=== PATIENT | male | born 1950 | race Caucasian/White ===

== ENCOUNTER 2017-07-14 22:02 | Observation (INO) ==
[2017-07-14 22:29] LABS: Basophils # 0.1 10*3/uL (0.0-0.2); Basophils % 0.8 % (0.0-0.8); Eosinophils # 0.3 10*3/uL (0.0-0.87); Eosinophils % 3.1 % (0.00-10.9); Hematocrit 38.5 VOL% (42.0-52.0); Hemoglobin 12.4 GM/DL (14.0-18.0); Immature Granulocytes % 0.4 %; Immature Granulocytes Absolute 0.03 #; Lymphocytes # 3.2 10*3/uL (1.4-4.0); Mean Corpuscular HGB Conc 32.2 GM/DL (32-36); Mean Corpuscular Hemoglobin 27 PG (27-34); Mean Corpuscular Volume 84.4 FL (87-102); Mean Platelet Volume 9.7 FL (9.6-12.0); Monocytes # 0.6 10*3/uL (0.11-0.8); Monocytes % 7.7 % (1.7-12.7); Neutrophils # 3.8 10*3/uL (1.4-7.4); Platelet Count 323 T/CUMM (130-400); Red Blood Count 4.56 MC/CUMM (3.8-5.5); Red Cell Distribution Width 13.8 % (9.3-17.3)
[2017-07-14 22:37] LABS: INR 0.9; Partial Thromboplastin Time 24.3 SECS (0-40)
[2017-07-14 22:46] LABS: Alanine Aminotransferase 52 U/L (16-61); Albumin 3.7 G/DL (3.4-5.0); Alkaline Phosphatase 77 U/L (45-117); Aspartate Amino Transferase 28 U/L (0-37); Bilirubin,Total < 0.39 MG/DL (0.2-1.0); Blood Urea Nitrogen 25 MG/DL (7-18); Calcium 8.3 MG/DL (8.5-10.1); Glucose 106 MG/DL (74-106); Osmolality,Calculated 278.7 MOS/KG (273-304); Potassium 4.5 MMOL/L (3.5-5.1); Sodium 138 MMOL/L (136-145); Total Protein 6.9 G/DL (6.4-8.3); Troponin I Only < 0.015 NG/ML (0.00-0.045)
[2017-07-14] MEDS ORDERED: ENOXAPARIN 100 MG/ML SYRINGE SUBCUT STA (23:55)
[2017-07-14] MEDS ORDERED: METOPROLOL TARTRATE 25 MG TABLET PO STA (23:55)
[2017-07-15] MEDS ORDERED: ONDANSETRON 4 MG/2 ML VIAL IV PRN (00:50)
[2017-07-15] MEDS ORDERED: MAGNESIUM SULF RIDER 2 GM in PREMIX 1 EACH IV PRN (00:50)
[2017-07-15] MEDS ORDERED: MAGNESIUM SULF RIDER 4 GM in PREMIX 1 EACH IV PRN (00:50)
[2017-07-15] MEDS ORDERED: ACETAMINOPHEN 325 MG TABLET PO PRN (00:50)
[2017-07-15] MEDS ORDERED: POTASSIUM CHLORIDE 20 MEQ TABLET PO PRN (00:50)
[2017-07-15] MEDS: SODIUM CHLORIDE 0.9% 1,000 ML IV SCH ×2 (01:14→09:19)
[2017-07-15 03:10] LABS: Troponin I Only < 0.015 NG/ML (0.00-0.045)
[2017-07-15 08:36] LABS: Troponin I Only < 0.015 NG/ML (0.00-0.045)
[2017-07-15] MEDS ORDERED: traMADol 50 MG TABLET PO PRN (10:41)
[2017-07-15] MEDS ORDERED: GEMFIBROZIL 600 MG TABLET PO SCH (11:00)
[2017-07-15] MEDS ORDERED: ALLOPURINOL 300 MG TABLET PO SCH (11:00)
[2017-07-15] MEDS ORDERED: NEBIVOLOL 10 MG TABLET PO SCH (11:00)
[2017-07-15] MEDS ORDERED: IRBESARTAN 150 MG TABLET PO SCH (11:00)
[2017-07-15] MEDS ORDERED: CLOPIDOGREL 75 MG TABLET PO SCH (11:00)
[2017-07-15] MEDS ORDERED: ISOSORBIDE MONONITRATE 30 MG TABLET PO SCH (11:00)
[2017-07-15] MEDS ORDERED: ASPIRIN 325 MG TABLET PO SCH (11:00)
[2017-07-15] MEDS ORDERED: DIAZEPAM 5 MG TABLET PO ONE (14:18)
[2017-07-15] MEDS ORDERED: diphenhydrAMINE CAP 25 MG CAPSULE PO ONE (14:18)
[2017-07-15] MEDS ORDERED: DIAZEPAM 5 MG TABLET ONE (14:19)
[2017-07-15] MEDS ORDERED: diphenhydrAMINE CAP 25 MG CAPSULE ONE (14:19)
[2017-07-15] MEDS ORDERED: NITROGLYCERIN DRIP 50 MG/250 ML BOTTLE IV ONE (14:41)
[2017-07-15] MEDS ORDERED: HEPARIN/NACL 0.9% 2 UNITS/ML 1,000 ML IV ONE (14:41)
[2017-07-15] MEDS ORDERED: VERAPAMIL 5 MG/2 ML VIAL ONE (14:42)
[2017-07-15] MEDS ORDERED: diphenhydrAMINE CAP 25 MG CAPSULE PO PRN (14:57)
[2017-07-15] MEDS ORDERED: MAGNESIUM HYDROXIDE SUSP 30 ML UDCUP PO PRN (14:57)
[2017-07-15] MEDS ORDERED: MIDAZOLAM 2 MG/2 ML VIAL ONE ×2 (15:21→15:34)
[2017-07-15] MEDS ORDERED: fentaNYL 100 MCG/2 ML VIAL ONE (15:22)
[2017-07-15] MEDS ORDERED: ENOXAPARIN 60 MG/0.6 ML SYRINGE ONE (15:32)
[2017-07-15 17:50] VITALS: BP 121/67
[2017-07-15] MEDS ORDERED: NIFEdipine CC 60 MG TABLET PO SCH (21:00)
[2017-07-15] MEDS ORDERED: clonazePAM 0.5 MG TABLET PO SCH (21:00)
[2017-07-15] MEDS ORDERED: ATORVASTATIN 20 MG TABLET PO SCH (21:00)
[2017-07-16] MEDS ORDERED: PANTOPRAZOLE 20 MG TABLET PO SCH (09:00)
== END 2017-07-15 19:25 | disposition home or self-care (01) ==
LOC: EDUNIT# → EDBD → N.EDINP 22:02 → N.ED 22:02 → N.EDINP 07-15 00:45 → N.ICU 07-15 00:54
PROVIDERS: ADMIT Internal Medicine Cardiovascular Disease; ATTEND Internal Medicine Cardiovascular Disease
PROC: CLCCHCL (ICD-10-PCS; 2017-07-15 13:45)

== ENCOUNTER 2018-10-27 05:52 | Inpatient (IN) ==
[~2018-10-27 05:52] MED LIST: FAMOTIDINE 20 MG TABLET PO ONE; GABAPENTIN 400 MG CAPSULE PO ONE
[2018-10-27] MEDS ORDERED: SODIUM PHOSPHATE ENEMA 133 ML BOTTLE RECTAL ONE ×2 (05:54→06:25)
[2018-10-27] MEDS ORDERED: ALVIMOPAN 12 MG CAPSULE ONE (05:54)
[2018-10-27] MEDS ORDERED: ALVIMOPAN 12 MG CAPSULE PO ONE (06:00)
[2018-10-27] MEDS ORDERED: ACETAMINOPHEN 500 MG TABLET PO ONE (06:00)
[2018-10-27] MEDS ORDERED: cefTRIAXone 1,000 MG in SYRINGE 1 EACH IV ONE (06:00)
[2018-10-27] MEDS ORDERED: GABAPENTIN 400 MG CAPSULE ONE (06:09)
[2018-10-27] MEDS ORDERED: ACETAMINOPHEN 500 MG TABLET ONE (06:09)
[2018-10-27] MEDS ORDERED: cefTRIAXone 1,000 MG VIAL ONE (06:09)
[2018-10-27] MEDS ORDERED: FAMOTIDINE 20 MG TABLET ONE (06:29)
[2018-10-27] MEDS ORDERED: LACTATED RINGERS 1,000 ML IV SCH (07:00)
[2018-10-27] MEDS ORDERED: ONDANSETRON 4 MG/2 ML VIAL IV PRN ×2 (11:00→11:34)
[2018-10-27] MEDS ORDERED: HYDROmorphone PCA 30 MG/30 ML SYRINGE IV SCH ×2 (11:00→12:30)
[2018-10-27] MEDS ORDERED: PROPOFOL 200 MG/20 ML VIAL IV ONE (11:20)
[2018-10-27] MEDS ORDERED: GLYCOPYRROLATE 0.4 MG/2 ML VIAL ONE (11:21)
[2018-10-27] MEDS ORDERED: ePHEDrine 50 MG/ML AMP ONE (11:21)
[2018-10-27] MEDS ORDERED: DESFLURANE 1 UNIT/15 MINUTE INH ONE (11:21)
[2018-10-27] MEDS ORDERED: MIDAZOLAM 2 MG/2 ML VIAL ONE (11:21)
[2018-10-27] MEDS ORDERED: ACETAMINOPHEN 1,000 MG/100 ML VIAL IV ONE (11:21)
[2018-10-27] MEDS ORDERED: ONDANSETRON 4 MG/2 ML VIAL ONE ×2 (11:21→11:34)
[2018-10-27] MEDS ORDERED: ROCURONIUM 100 MG/10 ML VIAL IV ONE (11:22)
[2018-10-27] MEDS ORDERED: PHENYLEPHRINE 1 MG/10 ML SYRINGE IV ONE (11:22)
[2018-10-27] MEDS ORDERED: ALBUTEROL INHALER 8 GM INH ONE (11:22)
[2018-10-27] MEDS ORDERED: NEOSTIGMINE 10 MG/10 ML VIAL ONE (11:22)
[2018-10-27] MEDS ORDERED: LACTATED RINGERS 2,000 ML IV ONE (11:22)
[2018-10-27 11:27] LABS: Amorphous Crystals,Urine Occasional /HPF (Few); Apearance,Urine CLEAR (Clear); Bacteria,Urine Occasional /HPF (Few); Bilirubin,Urine Negative (Negative); Blood, Urine Moderate mg/dL (Negative); Glucose,Urine (UA) Negative (Negative); Hyaline Casts,Urine 5 /LPF (0-3); Ketones,Urine Negative (Negative); Mucus,Urine Occasional /LPF (Occasional); Nitrite,Urine Negative (Negative); Protein,Urine 30 MG/DL; RBC,Urine 19 /HPF (0-4); Squamous Epithelial Cell,Urine Occasional /HPF (0-10); Urine Color Yellow (Yellow); Urine Specific Gravity 1.017 (1.001-1.035); Urine Urobilinogen < 2.0 EU/DL (0.2-1.0); WBC,Urine 3 /HPF (0-6)
[2018-10-27] MEDS ORDERED: HYDROmorphone 2 MG/1 ML VIAL ONE (11:33)
[2018-10-27] MEDS ORDERED: HYDROmorphone 2 MG/1 ML VIAL IV PRN (11:34)
[2018-10-27] MEDS ORDERED: NALOXONE 0.4 MG/ML VIAL IV PRN (12:02)
[2018-10-27 14:32] LABS: Basophils # 0.1 10*3/uL (0.0-0.2); Basophils % 0.4 % (0.0-0.8); Eosinophils % 0.1 % (0.00-10.9); Hematocrit 38.1 VOL% (42.0-52.0); Hemoglobin 12.3 GM/DL (14.0-18.0); Immature Granulocytes % 0.6 %; Immature Granulocytes Absolute 0.08 #; Lymphocytes # 0.9 10*3/uL (1.4-4.0); Lymphocytes % 6.7 % (21.2-54.2); Mean Corpuscular HGB Conc 32.3 GM/DL (32-36); Mean Corpuscular Volume 87.8 FL (87-102); Mean Platelet Volume 10.2 FL (9.6-12.0); Monocytes % 3.6 % (1.7-12.7); Neutrophils % 88.6 % (38.7-73.9); Platelet Count 240 T/CUMM (130-400); Red Blood Count 4.34 MC/CUMM (3.8-5.5); Red Cell Distribution Width 13.2 % (9.3-17.3); White Blood Count 13.3 T/CUMM (4-12)
[2018-10-27] MEDS: SODIUM CHLORIDE 0.9% 1,000 ML IV SCH ×2 (14:51→22:53)
[2018-10-27] MEDS: OXYBUTYNIN XL 10 MG TABLET PO SCH (14:56)
[2018-10-27 14:58] LABS: Albumin 3.3 G/DL (3.4-5.0); Bilirubin,Total 0.6 MG/DL (0.2-1.0); Calcium 8.2 MG/DL (8.5-10.1); Osmolality,Calculated 283.4 MOS/KG (273-304); Total Protein 6.3 G/DL (6.4-8.3)
[2018-10-27] MEDS ORDERED: MEPERIDINE 50 MG/1 ML VIAL IM PRN ×2 (16:18→17:31)
[2018-10-27] MEDS ORDERED: PANTOPRAZOLE 40 MG TABLET PO ONE (17:44)
[2018-10-27] MEDS ORDERED: NON-FORMULARY MEDICATION (Nifedipine 60 MG) PO SCH (21:00)
[2018-10-27] MEDS: ATORVASTATIN 20 MG TABLET PO SCH (21:45)
[2018-10-27] MEDS: ALVIMOPAN 12 MG CAPSULE PO SCH (21:45)
[2018-10-27] MEDS: clonazePAM 0.5 MG TABLET PO SCH (21:45)
[2018-10-28 05:34] LABS: Basophils % 0.3 % (0.0-0.8); Eosinophils % 0.2 % (0.00-10.9); Hematocrit 34.4 VOL% (42.0-52.0); Immature Granulocytes % 0.3 %; Immature Granulocytes Absolute 0.03 #; Lymphocytes # 1.1 10*3/uL (1.4-4.0); Lymphocytes % 11.9 % (21.2-54.2); Mean Corpuscular Volume 87.8 FL (87-102); Mean Platelet Volume 10.4 FL (9.6-12.0); Monocytes % 6.9 % (1.7-12.7); Neutrophils % 80.4 % (38.7-73.9); Platelet Count 212 T/CUMM (130-400); Red Blood Count 3.92 MC/CUMM (3.8-5.5); Red Cell Distribution Width 13.5 % (9.3-17.3); White Blood Count 9.1 T/CUMM (4-12)
[2018-10-28 06:03] LABS: Calcium 8.3 MG/DL (8.5-10.1); Osmolality,Calculated 280.4 MOS/KG (273-304)
[2018-10-28] MEDS ORDERED: oxyCODONE/ACETAMINOPHEN 5-325 MG TABLET PO PRN (07:35)
[2018-10-28] MEDS: POLYETHYLENE GLYCOL POWDER 17 GM PACK PO SCH ×2 (08:47→21:34)
[2018-10-28] MEDS: PANTOPRAZOLE 40 MG TABLET PO SCH (08:47)
[2018-10-28] MEDS: GEMFIBROZIL 600 MG TABLET PO SCH (08:47)
[2018-10-28] MEDS: DOCUSATE SODIUM 100 MG CAPSULE PO SCH ×2 (08:47→21:29)
[2018-10-28] MEDS: ALVIMOPAN 12 MG CAPSULE PO SCH ×2 (08:47→21:29)
[2018-10-28] MEDS: OXYBUTYNIN XL 10 MG TABLET PO SCH (08:47)
[2018-10-28] MEDS: MAGNESIUM CHLORIDE 64 MG TABLET PO SCH (08:47)
[2018-10-28] MEDS ORDERED: LOSARTAN 50 MG TABLET PO SCH (09:00)
[2018-10-28] MEDS ORDERED: ALLOPURINOL 300 MG TABLET PO SCH (09:00)
[2018-10-28] MEDS: oxyCODONE/ACETAMINOPHEN 5-325 MG TABLET PO PRN (10:44)
[2018-10-28] MEDS ORDERED: MINERAL OIL 30 ML UDCUP PO ONE (17:03)
[2018-10-28] MEDS: ATORVASTATIN 20 MG TABLET PO SCH (21:29)
[2018-10-28] MEDS: clonazePAM 0.5 MG TABLET PO SCH (21:29)
[2018-10-28] MEDS: SENNA 8.6 MG TABLET PO SCH (21:29)
[2018-10-29] MEDS: POLYETHYLENE GLYCOL POWDER 17 GM PACK PO SCH ×2 (09:54→22:07)
[2018-10-29] MEDS: GEMFIBROZIL 600 MG TABLET PO SCH (09:54)
[2018-10-29] MEDS: MAGNESIUM CHLORIDE 64 MG TABLET PO SCH (09:54)
[2018-10-29] MEDS: OXYBUTYNIN XL 10 MG TABLET PO SCH (09:55)
[2018-10-29] MEDS: PANTOPRAZOLE 40 MG TABLET PO SCH (09:55)
[2018-10-29] MEDS: ALVIMOPAN 12 MG CAPSULE PO SCH (09:55)
[2018-10-29] MEDS: DOCUSATE SODIUM 100 MG CAPSULE PO SCH ×2 (09:55→22:08)
[2018-10-29] MEDS ORDERED: BISACODYL 10 MG SUPP RECTAL ONE (10:04)
[2018-10-29] MEDS ORDERED: METOCLOPRAMIDE 10 MG/2 ML VIAL IV PRN (10:05)
[2018-10-29] MEDS ORDERED: LACTULOSE 20 GM/30 ML UDCUP PO SCH (11:00)
[2018-10-29] MEDS: NEOMYCIN/POLYMYXIN/BACITRACIN OINT 0.9 GM PACK TOP SCH ×2 (11:31→22:04)
[2018-10-29] MEDS: LACTULOSE 20 GM/30 ML UDCUP PO SCH ×2 (13:06→16:32)
[2018-10-29] MEDS ORDERED: LACTULOSE 20 GM/30 ML UDCUP PO PRN (19:30)
[2018-10-29] MEDS: SENNA 8.6 MG TABLET PO SCH (22:07)
[2018-10-29] MEDS: clonazePAM 0.5 MG TABLET PO SCH (22:07)
[2018-10-29] MEDS: ATORVASTATIN 20 MG TABLET PO SCH (22:07)
[2018-10-30 06:28] LABS: Basophils # 0.1 10*3/uL (0.0-0.2); Basophils % 0.6 % (0.0-0.8); Eosinophils # 0.3 10*3/uL (0.0-0.87); Eosinophils % 3.8 % (0.00-10.9); Hematocrit 37.2 VOL% (42.0-52.0); Hemoglobin 11.9 GM/DL (14.0-18.0); Immature Granulocytes % 0.2 %; Immature Granulocytes Absolute 0.02 #; Lymphocytes % 23.2 % (21.2-54.2); Mean Corpuscular Volume 87.1 FL (87-102); Mean Platelet Volume 10.3 FL (9.6-12.0); Monocytes % 8.7 % (1.7-12.7); Neutrophils % 63.5 % (38.7-73.9); Platelet Count 238 T/CUMM (130-400); Red Blood Count 4.27 MC/CUMM (3.8-5.5); Red Cell Distribution Width 13.3 % (9.3-17.3); White Blood Count 8.6 T/CUMM (4-12)
[2018-10-30 06:43] LABS: Calcium 8.9 MG/DL (8.5-10.1); Osmolality,Calculated 282.1 MOS/KG (273-304)
[2018-10-30 08:32] VITALS: BP 126/81
[2018-10-30] MEDS: GEMFIBROZIL 600 MG TABLET PO SCH (09:39)
[2018-10-30] MEDS: MAGNESIUM CHLORIDE 64 MG TABLET PO SCH (09:39)
[2018-10-30] MEDS: NEOMYCIN/POLYMYXIN/BACITRACIN OINT 0.9 GM PACK TOP SCH (09:39)
[2018-10-30] MEDS: DOCUSATE SODIUM 100 MG CAPSULE PO SCH (09:39)
[2018-10-30] MEDS: OXYBUTYNIN XL 10 MG TABLET PO SCH (09:39)
[2018-10-30] MEDS: PANTOPRAZOLE 40 MG TABLET PO SCH (09:39)
[2018-10-30] MEDS: POLYETHYLENE GLYCOL POWDER 17 GM PACK PO SCH (09:39)
[2018-10-30] MEDS: oxyCODONE/ACETAMINOPHEN 5-325 MG TABLET PO PRN (09:39)
== END 2018-10-30 11:32 | disposition home or self-care (01) | DRG 707 ==
LOC: N.5E 05:52 → N.OR 05:52 → N.SDSINP 05:52 → EDSTATUS 07:30 → N.5E 13:03
PROVIDERS: ADMIT Urology; ATTEND Urology